=== PATIENT | female | born 1940 | race Caucasian/White ===

== ENCOUNTER 2022-07-22 11:08 | Emergency (ER) | payer MEDICARE, SELFPAY ==
[2022-07-22 11:10] VITALS: BP 145/97; PULSE 104; RESP 18; TEMP 36.8; O2SAT 96; BMI 26.3
[2022-07-22 11:12] VITALS: BP 145/97; PULSE 104; RESP 18; TEMP 36.8; O2SAT 96
--- NOTE | 2022-07-22 11:23 | EKG12_ITS ---
Test Reason : Blood Pressure : / mmHG Vent. Rate : 094 BPM Atrial Rate : 094 BPM P-R Int : 158 ms QRS Dur : 076 ms QT Int : 340 ms P-R-T Axes : 069 000 016 degrees QTc Int : 425 ms Normal sinus rhythm Normal ECG Confirmed by MATILDE MALDONADO, SHILPA ([id number]), technical writer and editor MARC MOHAN ([id number]) on 07/26/2022 10:38:33 A M Referred By: Confirmed By:RANJIT CLAYTON MD
--- NOTE | 2022-07-22 11:24 | US_ITS ---
STUDY: ULTRASOUND OF THE FEMALE PELVIS - COMPLETE REASON FOR EXAM: Female, 81 years old. Vaginal bleeding LMP: The patient is postmenopausal. TECHNIQUE: Transabdominal and Transvaginal TECHNICAL QUALITY: Adequate. COMPARISON: None. FINDINGS: The uterus is anteverted and is in a midline position. The uterus measures 6.8 cm x 5.1 cm x 4.6 cm. Normal uterine cervix. The endometrium is thickened and measures 28 mm in thickness, and is fluid distended. Possible endometrial mass. There is no demonstrated myometrial mass. I.U.D. - The patient does not have an I.U.D. The right ovary is non-visualized. The left ovary is non-visualized. There is no fluid in the cul-de-sac. US/Transvaginal Non- IMPRESSION: Markedly thickened endometrium with possible endometrial mass. Clinical correlation recommended. Electronically Signed: Saeid Mir MD at 13:08 EDT ,
--- NOTE | 2022-07-22 11:25 | EDS_ITS ---
HPI <CHOLO Garcia - Last Filed: 07/22/22 13:37> HPI - Female History of Present Illness Chief Complaint: Vag Bleeding Narrative Narrative: Patient is a 81-year-old female with history of pulmonary embolus on Eliquis, in a group home secondary to not ambulatory, hypothyroidism, hypertension who presents to the emergency department for vaginal bleeding starting this morning. Per the patient, she was getting changes morning when he saw kaylie blood in her diaper. She says it was gushing. The staff was concerned, and she is here for evaluation. She denies any pain, she denies any fever however she does have some chills PFSH <CHOLO Garcia - Last Filed: 07/22/22 13:37> PFSH Medical History (Updated 07/22/22 @ 13:[address] Bryan Lopez MD) Anxiety Chronic respiratory disease Crohn's disease GERD (gastroesophageal reflux disease) HTN (hypertension) Hypothyroid Rosacea Home Medications apixaban 5 mg tablet 5 mg PO BID 07/22/22 [History Last Taken Unknown] cholecalciferol (vitamin D3) 50 mcg (2,000 unit) tablet 50 mcg PO DAILY 07/22/22 [History Last Taken Unknown] fluticasone propionate 50 mcg/actuation nasal spray,suspension (Flonase Allergy Relief) 2 spray intranasal PRN PRN Nasal Congestion 07/22/22 [History Last Taken Unknown] furosemide 20 mg tablet (Lasix) 20 mg PO DAILY 07/22/22 [History Last Taken Unknown] levocetirizine 5 mg tablet 5 mg PO DAILY 07/22/22 [History Last Taken Unknown] levothyroxine 50 mcg tablet 50 mcg PO DAILY 07/22/22 [History Last Taken Unknown] metronidazole 1 % topical gel (Metrogel) topical 07/22/22 [History Last Taken Unknown] omeprazole 20 mg-sodium bicarbonate 1.1 gram capsule 1 cap PO DAILY 07/22/22 [History Last Taken Unknown] ondansetron 4 mg disintegrating tablet 4 mg PO Q6H PRN Nausea 07/22/22 [History Last Taken Unknown] ondansetron 4 mg disintegrating tablet 4 mg PO Q8H PRN Nausea 07/22/22 [History Last Taken Unknown] potassium chloride 20 mEq tablet,extended release 20 meq PO DAILY 07/22/22 [History Last Taken Unknown] prednisone 5 mg tablet 5 mg PO DAILY 07/22/22 [History Last Taken Unknown] soft lens adjunctive solutions 07/22/22 [History Last Taken Unknown] Allergy/AdvReac Type Severity Reaction Status Date / Time No Known Allergies Allergy Verified 07/22/22 11:12 Social History Smoking Status: Never smoker ROS <CHOLO Garcia - Last Filed: 07/22/22 13:37> ROS ED ROS Narrative Constitutional: Negative for fever, weight loss, weakness. Positive for chills Eyes: Negative for vision loss, vision change, double vision ENT: Negative for any sore throat, ear pain, congestion Cardiovascular: Negative for any chest pain, tightness, palpitations Respiratory: Negative for any cough, sputum production, hemoptysis, dyspnea, dyspnea on exertion, orthopnea Gastrointestinal: Negative for any abdominal pain, nausea, vomiting, diarrhea, constipation, blood in stool, blood in vomit : Negative for any urinary frequency, dysuria, retention, blood in urine. Positive for vaginal bleeding Muscle skeletal: Negative for any muscle joint pain, stiffness, myalgias, arthralgias, neck pain, back pain Neurological: Negative for any headache, syncope, numbness or tingling, dizziness Skin: Negative for any rashes, lumps, itching, abrasions, lacerations Psychiatric: Negative for any depression, anxiety, stress, suicidal ideation, homicidal ideation Hematologic: Negative for any easy bruising, excessive bruising, easy bleeding Allergies: Negative for any eczema, hives, rash EXAM <CHOLO Garcia - Last Filed: 07/22/22 13:37> Physical Exam Narrative Exam Narrative: Vital signs reviewed. HEET: Head normocephalic atraumatic, TMs clear bilaterally. Posterior pharynx is clear, moist mucous membranes. Nares clear bilaterally. Neck: Supple with no lymphadenopathy or tenderness. No signs of meningismus, negative jolt sign. Cardiac: Regular rate and rhythm no murmurs gallops or rubs, equal peripheral pulses bilaterally. Respiratory: Lungs clear to auscultation bilaterally. No chest tenderness. Abdomen: Soft, nontender, nondistended. No abdominal bruit or pulsatile masses. No hepatosplenomegaly Extremities: No peripheral edema, no signs of gross trauma or deformity. Active full range of motion of all extremities. Neuro: Cranial nerves II through XII intact, no focal neurological deficits. Skin: Clean dry and intact with no rash, purpura, petechiae, vesicles or pustules. Backs/flank: No CVA tenderness, no midline spinal tenderness, no deformity. Psych: Normal mood and affect. No SI, HI or acute psychosis. : I did do an external inspection with the nurse flash ranging crewmember, there is no gross bleeding from the vaginal area. There is some foul-smelling urine. There is no clots, kaylie red blood. Patient is no pain to the lower pelvis. Const Vital Signs: 07/22/22 11:10 07/22/22 11:12 07/22/22 14:16 Temperature 98.3 F 98.3 F Temperature Source Temporal Temporal Pulse Rate 104 H 104 H 98 Respiratory Rate 18 18 20 H Blood Pressure 145/97 H 145/97 H 148/98 H Blood Pressure Mean 113 113 114 Pulse Ox 96 96 98 Oxygen Delivery Method Room Air Room Air Room Air <Dr. Bryan Lopez MD - Last Filed: 07/22/22 14:44> Physical Exam Const Vital Signs: 07/22/22 11:10 07/22/22 11:12 07/22/22 14:16 Temperature 98.3 F 98.3 F Temperature Source Temporal Temporal Pulse Rate 104 H 104 H 98 Respiratory Rate 18 18 20 H Blood Pressure 145/97 H 145/97 H 148/98 H Blood Pressure Mean 113 113 114 Pulse Ox 96 96 98 Oxygen Delivery Method Room Air Room Air Room Air SALINAS <CHOLO Garcia - Last Filed: 07/22/22 13:37> [facility] Lab Data Labs: Laboratory Results - last 24 hr 07/22/22 07/22/22 07/22/22 11:45 11:45 11:45 WBC 14.3 H RBC 5.40 Hgb 15.2 H Hct 48.6 H MCV 90.0 MCH 28.1 MCHC 31.3 L RDW Std Deviation 47.4 H RDW Coeff of Cathie 14.4 Plt Count 544 H MPV 9.3 Immature Gran % (Auto) 1.200 H Neut % (Auto) 86.5 H Lymph % (Auto) 7.9 L [place] % (Auto) 3.6 Eos % (Auto) 0.3 Baso % (Auto) 0.5 Absolute Neuts (auto) 12.4 H Absolute Lymphs (auto) 1.13 Nucleated RBC % 0 PT Cancelled INR Cancelled Sodium 135 L Potassium 3.6 Chloride 102 Carbon Dioxide 28.0 Anion Gap 5 BUN 8 Creatinine 0.61 Estim Creat Clear Calc 32.73 Est GFR (MDRD) Af Amer 121 Est GFR (MDRD) Non-Af 100 BUN/Creatinine Ratio 13.1 Glucose 103 Calcium 8.9 Urine Color Urine Clarity Urine pH Ur Specific Rawlings Urine Protein Urine Glucose (UA) Urine Ketones Urine Occult Blood Urine Nitrite Urine Bilirubin Urine Urobilinogen Ur Leukocyte Esterase Urine RBC Urine WBC Ur Squamous Epith Cells Urine Bacteria Urine Mucus 07/22/22 07/22/22 11:45 12:56 WBC RBC Hgb Hct MCV MCH MCHC RDW Std Deviation RDW Coeff of Cathie Plt Count MPV Immature Gran % (Auto) Neut % (Auto) Lymph % (Auto) [place] % (Auto) Eos % (Auto) Baso % (Auto) Absolute Neuts (auto) Absolute Lymphs (auto) Nucleated RBC % PT 18.9 H INR 1.6 Sodium Potassium Chloride Carbon Dioxide Anion Gap BUN Creatinine Estim Creat Clear Calc Est GFR (MDRD) Af Amer Est GFR (MDRD) Non-Af BUN/Creatinine Ratio Glucose Calcium Urine Color Yellow Urine Clarity Clear Urine pH 7.0 Ur Specific [place]lings 1.010 Urine Protein Negative Urine Glucose (UA) Normal Urine Ketones Negative Urine Occult Blood 50 H Urine Nitrite Negative Urine Bilirubin Negative Urine Urobilinogen Normal Ur Leukocyte Esterase Negative Urine RBC 0-5 SEEN Urine WBC 0 SEEN Ur Squamous Epith Cells 0 SEEN Urine Bacteria 0 SEEN Urine Mucus 0 SEEN Radiography Diagnostic Testing: Clinical Impression(s) from Imaging Studies Transvaginal US 07/22/22 11:24 IMPRESSION: Markedly thickened endometrium with possible endometrial mass. Clinical correlation recommended. Electronically Signed: Saeid Mir MD at 13:08 EDT , EKG Normal sinus rhythm: Attestation: I personally reviewed and interpreted this EKG as follows: Comments: Normal sinus rhythm, rate of 94 bpm, QRS duration 76 ms, PA 158 ms, no acute ST elevation, no acute infarct noted. Treatment and Re-Evaluation Narrative: All radiologic examinations were read, reviewed by the emergency department attending. From these reads, a plan of care will be put in place. Patient does appear to be in no distress. Vital signs are stable. Patient is concerning for vaginal bleeding. Patient will receive a transvaginal ultrasound ruling out any masses or cancer. Patient receive IV fluids. Visual inspection showed no gross bleeding. I am concerned for urinary tract infection. Patient have a straight catheter urine. As well as basic laboratory values. Patient CBC showed leukocytosis of 14.3, hemoglobin 15.2 numbers of anemia. PT/INR shows INR 1.6 with a PT of 18.9. Chemistries were unremarkable. Patient's urinalysis was negative for any infection, there was 51 occult blood. Patient's transvaginal ultrasound shows marked thickened endometrium with possible Gerardo mass. Clinical correlation recommended. Secondary to patient's postmenopausal status, I did speak with the patient, she would like to be DNR CCA to DNR CC that is in her paperwork. We did speak with [facility], Dr. Lara. This is concerning for endometrial mass, cancer. Patient was made aware. She will be able to be discharged home and follow-up in the office. Patient is agreeable. All questions answered. Strict return precaution given. Patient stable for discharge. <Dr. Bryan Lopez MD - Last Filed: 07/22/22 14:44> [facility] Narrative Medical decision making narrative: I have personally performed a face to face assessment of the patient and have reviewed the KATHRYN Note. I performed a substantive portion of the visit including all aspects of the following. My turner findings include: History is remarkable for vaginal bleeding. Patient denies urologic symptoms. Patient denies weight loss. Patient denies night sweats. Patient denies pelvic pain or low back pain. Patient is not on an antithrombotic or any coagulant. Patient denies history of anemia. She denies orthostatic symptoms. She denies dyspnea on exertion. Exam is unremarkable. HEENT exam reveals pink conjunctive a. Heart lung exam is normal. Abdomen is soft nontender. No obvious palpable mass. External genital exam was performed by nurse practitioner with no blood noted at the introitus or urethra. Medical Decision Making cath urine was obtained and there is no evidence of blood which raises concern for postmenopausal vaginal bleeding. Speculum exam needs to be performed. White count is elevated 14.3 with slight shift. H&H is normal. Basic metabolic panel is. Urinalysis reveals 0-5 RBCs on microscopic exam otherwise normal. Other additions or changes: Case was discussed with Dr. Lara who is on for gynecology. Plan is discharge and outpatient follow-up and testing. She was informed the patient is DNR Comfort Care arrest and specifically no life support or CPR. Lab Data Attestation: I reviewed the patient's lab results. Lab results narrative: Documented HPI narrative by me Labs: Laboratory Results - last 24 hr 07/22/22 07/22/22 07/22/22 11:45 11:45 11:45 WBC 14.3 H RBC 5.40 Hgb 15.2 H Hct 48.6 H MCV 90.0 MCH 28.1 MCHC 31.3 L RDW Std Deviation 47.4 H RDW Coeff of Cathie 14.4 Plt Count 544 H MPV 9.3 Immature Gran % (Auto) 1.200 H Neut % (Auto) 86.5 H Lymph % (Auto) 7.9 L [place] % (Auto) 3.6 Eos % (Auto) 0.3 Baso % (Auto) 0.5 Absolute Neuts (auto) 12.4 H Absolute Lymphs (auto) 1.13 Nucleated RBC % 0 PT Cancelled INR Cancelled Sodium 135 L Potassium 3.6 Chloride 102 Carbon Dioxide 28.0 Anion Gap 5 BUN 8 Creatinine 0.61 Estim Creat Clear Calc 32.73 Est GFR (MDRD) Af Amer 121 Est GFR (MDRD) Non-Af 100 BUN/Creatinine Ratio 13.1 Glucose 103 Calcium 8.9 Urine Color Urine Clarity Urine pH Ur Specific Rawlings Urine Protein Urine Glucose (UA) Urine Ketones Urine Occult Blood Urine Nitrite Urine Bilirubin Urine Urobilinogen Ur Leukocyte Esterase Urine RBC Urine WBC Ur Squamous Epith Cells Urine Bacteria Urine Mucus 07/22/22 07/22/22 11:45 12:56 WBC RBC Hgb Hct MCV MCH MCHC RDW Std Deviation RDW Coeff of Cathie Plt Count MPV Immature Gran % (Auto) Neut % (Auto) Lymph % (Auto) [place] % (Auto) Eos % (Auto) Baso % (Auto) Absolute Neuts (auto) Absolute Lymphs (auto) Nucleated RBC % PT 18.9 H INR 1.6 Sodium Potassium Chloride Carbon Dioxide Anion Gap BUN Creatinine Estim Creat Clear Calc Est GFR (MDRD) Af Amer Est GFR (MDRD) Non-Af BUN/Creatinine Ratio Glucose Calcium Urine Color Yellow Urine Clarity Clear Urine pH 7.0 Ur Specific [place] 1.010 Urine Protein Negative Urine Glucose (UA) Normal Urine Ketones Negative Urine Occult Blood 50 H Urine Nitrite Negative Urine Bilirubin Negative Urine Urobilinogen Normal Ur Leukocyte Esterase Negative Urine RBC 0-5 SEEN Urine WBC 0 SEEN Ur Squamous Epith Cells 0 SEEN Urine Bacteria 0 SEEN Urine Mucus 0 SEEN Radiography Diagnostic Testing: Clinical Impression(s) from Imaging Studies Transvaginal US 07/22/22 11:24 IMPRESSION: Markedly thickened endometrium with possible endometrial mass. Clinical correlation recommended. Electronically Signed: Saeid Mir MD at 13:08 EDT , Discharge Plan Triage Chief Complaint: Vag Bleeding ED Midlevel Provider: Sacha Ron ED Provider: Bryan Lopez Dx/Rx/DC Orders Clinical Impression: Abnormal vaginal bleeding in postmenopausal patient, Endometrial cancer Instructions: Endometrial Biopsy, What Is Endometrial Cancer Prescriptions: No Action prednisone 5 mg Tablet 5 mg PO DAILY levothyroxine 50 mcg Tablet 50 mcg PO DAILY furosemide [Lasix] 20 mg Tablet 20 mg PO DAILY ondansetron [Zofran ODT] 4 mg Tablet,Disintegrating 4 mg PO Q8H PRN (Reason: Nausea) ondansetron [Zofran ODT] 4 mg Tablet,Disintegrating 4 mg PO Q6H PRN (Reason: Nausea) fluticasone propionate [Flonase Allergy Relief] 50 mcg/actuation [place],Suspension 2 spray INTRANASAL PRN PRN (Reason: Nasal Congestion) metronidazole [Metrogel] 1 % Gel TOPICAL (DME) Saline [place] Aerosol,[place] MISCELLANEOUS omeprazole-sodium bicarbonate 20-1.1 mg-gram Capsule 1 cap PO DAILY levocetirizine 5 mg Tablet 5 mg PO DAILY cholecalciferol (vitamin D3) 50 mcg (2,000 unit) Tablet 50 mcg PO DAILY apixaban 5 mg Tablet 5 mg PO BID potassium chloride 20 mEq Tablet Extended Release 20 meq PO DAILY Primary Care Provider: Sacha Watson Referrals: Massiel Olmos MD [Med Staff - Active Staff] - Sacha Watson MD [Primary Care Provider] - Activity Restrictions/Additional Instructions: Please follow-up with [facility] concerning for endometrial cancer. Your hemoglobin was stable. Please return for any worsening symptoms Disposition Disposition: Home, Self Care
[2022-07-22 11:52] LABS: Bacteria 0 SEEN /hpf (None Seen); Mucous, Urine 0 SEEN /hpf (<or=2+); Squamous Epithelial Cells - UA 0 SEEN /hpf (5-10); White Blood Cells 0 SEEN /hpf (0-5)
--- NOTE | 2022-07-22 11:52 | NURSING ---
NO OLD EKGS
[2022-07-22 11:56] LABS: Color, Urine Yellow (Yellow); Glucose, Dipstick Normal (Normal); Ketone-Dipstick Negative (Negative); Leukocyte Esterase-Dipstick Negative /ul (Negative); Nitrite-Dipstick Negative (Negative); Occult Blood-Urine 50 /ul (Negative); Protein-Dipstick Negative (Negative); Urine Bilirubin Dipstick Negative (Negative); Urine Clarity Clear (Clear); Urine Urobilinogen Normal (Normal)
[2022-07-22 11:57] LABS: Absolute Lymphocyte Count 1.13 X10^3/uL (0.83-4.51); Absolute Neutrophil Count 12.4 X10^3/uL (2.0-7.7); Basophil# 0.07 X10^3/uL; Basophil% 0.5 % (0-1); Eosinophil# 0.04 X10^3/uL; Eosinophils% 0.3 % (0-5); Hematocrit 48.6 % (37-47); Hemoglobin 15.2 g/dL (12.0-15.0); Lymphocyte # 1.13 X10^3/ul (0.83-4.51); Lymphocyte % 7.9 % (19-41); Mean Corp Hgb Conc 31.3 g/dL (32-36); Mean Corpuscular Hgb 28.1 pg (27.0-32.0); Mean Platelet Vol. 9.3 fl (6.2-12.0); Monocyte# 0.52 X10^3/uL; Monocyte% 3.6 % (0-10); NRBC Flagged by Analyzer 0 % (0-5); Neutrophil # 12.35 X10^3/uL (2.7-7.7); Neutrophil % 86.5 % (47-70); Platelet Count 544 K/mm3 (150-450); RBC Distribution Width CV 14.4 % (11.6-14.6); RBC Distribution Width SD 47.4 fl (35.1-43.9); White Blood Count 14.3 K/mm3 (4.4-11.0)
[2022-07-22] MEDS: 0.9% Normal Saline 1,000 ML 1000 ML IV (12:00)
[2022-07-22 12:05] LABS: Red Blood Cells-Urine 0-5 SEEN /hpf (0-5)
[2022-07-22 12:09] LABS: Anion Gap 5 (5-15); BUN 8 mg/dL (7-18); BUN/Creat Ratio 13.1 RATIO (10-20); Calcium,Total 8.9 mg/dL (8.5-10.1); Chloride 102 mmol/L (98-107); Creatinine, Serum 0.61 mg/dL (0.55-1.02); EST Glomerular Filtration Rate 100 mL/min (>60); Est Glom Filt Rate - Afr Amer 121 mL/min (>60); Estimated Creatinine Clearance 32.73 ml/min; Glucose 103 mg/dL (74-106); Potassium 3.6 mmol/L (3.5-5.1); Sodium Level 135 mmol/L (136-145)
--- NOTE | 2022-07-22 12:09 | NURSING ---
BLUE TOP TOO SHORT. LAB WILL REPRINT LABEL
[2022-07-22 13:20] LABS: International Normalized Ratio 1.6; Prothrombin Time (Protime)PT. 18.9 SECONDS (11.7-14.9)
--- NOTE | 2022-07-22 13:46 | ED.RN ---
REPORT CALLED BACK TO EVELIA [facility]. UPDATED ON PATIENTS TEST RESULTS AND WILL BE RETURNING TO [facility]. IMPORTANT FOR HER TO FOLLOW UP WITH HER OBGYN
--- NOTE | 2022-07-22 13:47 | NURSING ---
CALLED [facility], ETA IS 45 MIN
[2022-07-22 14:16] VITALS: BP 148/98; PULSE 98; RESP 20; O2SAT 98
== END 2022-07-22 15:06 | disposition home or self-care (01) ==
PROVIDERS: Nurse Practitioner; Emergency Provider Emergency Medicine; PCP Family Medicine; Visit Provider Emergency Medicine
DX: C54.1 Malignant neoplasm of endometrium (principal); N95.0 Postmenopausal bleeding; I10 Essential (primary) hypertension; E03.9 Hypothyroidism, unspecified; Z79.01 Long term (current) use of anticoagulants; Z79.890 Hormone replacement therapy; Z79.899 Other long term (current) drug therapy; Z86.711 Personal history of pulmonary embolism; Z66 Do not resuscitate
CPT/HCPCS: 36415; 76830; 80048; 81001; 85025; 85610; 93005; 96360; 99285; J7030; P9612; A4216